=== PATIENT | male | born 1965 | race American Indian/Alaskan Native ===

== ENCOUNTER 2016-11-16 20:04 | Emergency (ER) | payer MEDICAID ==
[2016-11-16 20:19] VITALS: BP 100/67; PULSE 97; RESP 20; TEMP 98.1; O2SAT 96
--- NOTE | 2016-11-16 21:04 | C.PDOC ---
History Of Present Illness 51 y/o male pmhx schizophrenia and bipolar disorder recently moved from [place] presents to the ED requesting medication refill. Pt hasn't had medications in 3 days due to recent move. Pt also requesting evaluation for psych admission. Denies SI, HI, hallucinations or any other complaints. Time Seen by Provider: 11/16/16 20:37 Chief Complaint (Nursing): Med Refill History Per: Patient History/Exam Limitations: no limitations Onset/Duration Of Symptoms: Days Current Symptoms Are (Timing): Still Present Severity: Mild Recent travel outside of the [place]: No Past Medical History Reviewed: Historical Data, Nursing Documentation, Vital Signs Vital Signs: Last Vital Signs Temp 98.1 F 11/16/16 20:18 Pulse 97 H 11/16/16 20:18 Resp 20 11/16/16 20:18 BP 100/67 11/16/16 20:18 Pulse Ox 96 11/16/16 23:04 - Medical History PMH: Bipolar Disorder, HTN, Hyperlipidemia, Schizophrenia Family History: States: Unknown Family Hx - Social History Hx Alcohol Use: No Hx Substance Use: No Review Of Systems Except As Marked, All Systems Reviewed And Found Negative. Psych: Negative for: Suicidal ideation Physical Exam - Physical Exam Appears: Non-toxic, No Acute Distress, Other (discheveled, anxious) Skin: Warm, Dry, No Rash Head: Atraumatic, Normacephalic Eye(s): bilateral: PERRL, EOMI Neck: Normal, Normal ROM, Supple Chest: Symmetrical Cardiovascular: Rhythm Regular, No Murmur Respiratory: Normal Breath Sounds, No Rales, No Rhonchi, No Wheezing Gastrointestinal/Abdominal: Normal Exam, Soft, No Tenderness Extremity: Normal ROM Extremity: Bilateral: Atraumatic Neurological/Psych: Oriented x3, Normal Speech ED Course And Treatment - Laboratory Results Result Diagrams: 11/16/16 21:15 11/16/16 21:15 O2 Sat by Pulse Oximetry: 96 (room air) Pulse Ox Interpretation: Normal Progress Note: Plan: labs, UA, Crisis evaluation. Pt is medically stable, was evaluated by crisis counselor Prudence and case was d/w psychiatrist- as per crisis pt was seen at [facility] earlier today and according to a relative pt just [place] from [place] and has not been compliant to meds - pt wants to be started back on his psych meds and has no S/H ideations, or hallucinations or depression sx. Pt was referred to [facility] on monday for outpatient management and was given a list of local shelters. Pt is stable in NAD, VSS, labs reviewed and WNL. Pt understands plan for follow up and return precautions Disposition Counseled Patient/Family Regarding: Diagnosis, Need For Followup, Rx Given - Disposition Referrals: PMD, Private doctor [Other] Disposition: HOME/ ROUTINE Disposition Time: 21:02 Condition: STABLE Additional Instructions: Please follow up with [facility] as scheduled on monday Return to ER if worse Forms: General Discharge Instructions - Clinical Impression Clinical Impression: Encounter for medication refill, Evaluation by psychiatric service required - PA / PROCESS IMPROVEMENT CONSULTANT / Resident Statement MD/DO has reviewed & agrees with the documentation as recorded. - Scribe Statement The provider has reviewed the documentation as recorded by the Scribfritz Hernandez All medical record entries made by the Massimoibfritz were at my direction and personally dictated by me. I have reviewed the chart and agree that the record accurately reflects my personal performance of the history, physical exam, medical decision making, and the department course for this patient. I have also personally directed, reviewed, and agree with the discharge instructions and disposition.
[2016-11-16 21:24] LABS: BASO % 0.4 % (0.0-2.0); EOS % 0.4 % (0.0-4.0); LYMPH # 0.9 K/uL (1.0-4.3); LYMPH % 10.9 % (20.0-40.0); MEAN CELL VOLUME 83.8 fL (80.0-94.0); MEAN CORPUSCULAR HEMOGLOBIN 27.5 pg (27.0-31.0); MEAN CORPUSCULAR HGB CONC 32.8 g/dL (33.0-37.0); MEAN PLATELET VOLUME 9.5 fL (7.2-11.7); MONO # 0.7 K/uL (0.0-0.8); MONO % 8.6 % (0.0-10.0); NEUT # 6.8 K/uL (1.8-7.0); NEUT % 79.7 % (50.0-75.0); RBC 5.11 Mil/uL (4.40-5.90); RED CELL DISTRIBUTION WIDTH 12.8 % (11.5-14.5); WHITE BLOOD COUNT 8.6 K/uL (4.8-10.8)
[2016-11-16 21:26] LABS: ALBUMIN 4.1 g/dL (3.5-5.0)
[2016-11-16 21:29] LABS: GFR AFRICAN-AMERICAN > 60; GFR NON-AFRICAN AMERICAN > 60
[2016-11-16 21:30] LABS: ALB/GLOB RATIO 1.2 (1.0-2.1); ALT/SGPT 27 U/L (21-72); AST/SGOT 28 U/L (17-59); BLOOD UREA NITROGEN 20 mg/dL (9-20); CALCIUM 9.5 mg/dl (8.6-10.4)
[2016-11-16 21:32] LABS: BARBITURATES, UR NEGATIVE (NEGATIVE); SQUAMOUS EPITHIAL < 1 /hpf (0-5); URINE BILIRUBIN NEGATIVE (NEGATIVE); URINE BLOOD NEGATIVE (NEGATIVE); URINE CLARITY Clear (Clear); URINE COLOR Yellow (YELLOW); URINE GLUCOSE (UA) NORMAL (Normal); URINE LEUKOCYTE ESTERASE NEG Leu/uL (Negative); URINE NITRATE NEGATIVE (NEGATIVE); URINE PROTEIN NEGATIVE (NEGATIVE)
[2016-11-16 21:33] LABS: BENZODIAZEPINES, UR NEGATIVE (NEGATIVE)
[2016-11-16 21:36] LABS: OPIATES, UR NEGATIVE (NEGATIVE)
[2016-11-16 21:37] LABS: PHENCYCLIDINE, UR NEGATIVE (NEGATIVE)
== END 2016-11-16 23:07 | disposition home or self-care (01) ==
LOC: C.ER 20:04
DX: F31.9 Bipolar disorder, unspecified (principal); F20.9 Schizophrenia, unspecified; Z76.0 Encounter for issue of repeat prescription

== ENCOUNTER 2016-12-08 00:02 | Emergency (ER) | payer MEDICARE, MEDICAID ==
[2016-12-08 00:17] VITALS: TEMP 98.2
--- NOTE | 2016-12-08 00:42 | C.PDOC ---
History Of Present Illness A 51 M c/o left shoulder pain that began today. Pt notes carrying a heavy load today and is now complaining of pain. Pt was discharged from today. Denies weakness, numbness, trauma to the area, or any other complaints. Time Seen by Provider: 12/08/16 00:40 Chief Complaint (Nursing): Upper Extremity Problem/Injury History Per: Patient History/Exam Limitations: no limitations Onset/Duration Of Symptoms: Hrs Current Symptoms Are (Timing): Still Present Quality: "Pain" Severity: Mild Recent travel outside of the [place]: No Additional History Per: Patient Past Medical History Reviewed: Historical Data, Nursing Documentation, Vital Signs Vital Signs: Last Vital Signs Temp 98.2 F 12/08/16 00:10 Pulse 87 12/08/16 00:10 Resp 16 12/08/16 00:10 BP 105/68 12/08/16 00:10 Pulse Ox 98 12/08/16 00:43 - Medical History PMH: Asthma, Bipolar Disorder, HTN, Hypercholesterolemia, Hyperlipidemia, Schizophrenia Denies: Diabetes, Hepatitis, HIV, Chronic Kidney Disease, Seizures, Sexually Transmitted Disease Family History: States: Unknown Family Hx - Social History Hx Alcohol Use: No Hx Substance Use: No - Immunization History Hx Influenza Vaccination: No Hx Pneumococcal Vaccination: No Review Of Systems Except As Marked, All Systems Reviewed And Found Negative. Constitutional: Negative for: Other (Trauma) Musculoskeletal: Positive for: Shoulder Pain (Left shoulder) Neurological: Negative for: Weakness, Numbness Physical Exam - Physical Exam Appears: Non-toxic, No Acute Distress Skin: Warm, Dry Head: Atraumatic, Normacephalic Extremity: Normal ROM, Tenderness (Mild tenderness to the left shoulder area), Capillary Refill (<2secs), No Deformity Extremity: Bilateral: Normal Color And Temperature Pulses: Left Radial: Normal, Right Radial: Normal Neurological/Psych: Oriented x3, Normal Speech, Normal Cognition, Normal Motor, Normal Sensation, Other (No focal deficit) Gait: Steady ED Course And Treatment O2 Sat by Pulse Oximetry: 98 (RA) Pulse Ox Interpretation: Normal Medical Decision Making Medical Decision Making: Impression: A 51 M c/o left shoulder pain that began today. Plans: -Tylenol -Flexeril -Reassess Disposition Counseled Patient/Family Regarding: Diagnosis - Disposition Referrals: [facility] [Outside] Disposition: HOME/ ROUTINE Disposition Time: 00:40 Condition: STABLE Prescriptions: Acetaminophen [Tylenol 325mg tab] 650 mg PO Q4 #20 tab Cyclobenzaprine [Cyclobenzaprine HCl] 10 mg PO TID #10 tab Instructions: Muscle Strain (ED), Musculoskeletal Pain (ED) Forms: [employer] (Greenlandic) - POA Present On Arrival: None - Clinical Impression Clinical Impression: Muscle strain, Musculoskeletal pain - Scribe Statement The provider has reviewed the documentation as recorded by the Massimoibfritz barrios All medical record entries made by the Massimoibfritz were at my direction and personally dictated by me. I have reviewed the chart and agree that the record accurately reflects my personal performance of the history, physical exam, medical decision making, and the department course for this patient. I have also personally directed, reviewed, and agree with the discharge instructions and disposition.
[2016-12-08 01:27] VITALS: BP 116/68; PULSE 88; RESP 20; O2SAT 97
== END 2016-12-08 01:25 | disposition home or self-care (01) ==
LOC: C.ER 00:02
DX: S46.912A Strain of unspecified muscle, fascia and tendon at shoulder and upper arm level, left arm, initial encounter (principal); X50.0XXA Overexertion from strenuous movement or load, initial encounter; M79.1 Myalgia

== ENCOUNTER 2017-05-27 12:25 | Emergency (ER) | payer MEDICARE, OTHER ==
[2017-05-27 12:41] VITALS: RESP 18
[2017-05-27 13:54] LABS: BASO # 0.1 K/uL (0.0-0.2); BASO % 0.9 % (0.0-2.0); EOS % 0.4 % (0.0-4.0); HEMOGLOBIN 14.1 g/dL (12.0-18.0); LYMPH % 11.5 % (20.0-40.0); MEAN CELL VOLUME 84.2 fL (80.0-94.0); MEAN CORPUSCULAR HEMOGLOBIN 28.6 pg (27.0-31.0); MEAN PLATELET VOLUME 9.6 fL (7.2-11.7); MONO # 0.7 K/uL (0.0-0.8); NEUT # 6.8 K/uL (1.8-7.0); NEUT % 79.2 % (50.0-75.0); RBC 4.93 Mil/uL (4.40-5.90); RED CELL DISTRIBUTION WIDTH 12.6 % (11.5-14.5); WHITE BLOOD COUNT 8.6 K/uL (4.8-10.8)
[2017-05-27 14:07] LABS: ALB/GLOB RATIO 1.1 (1.0-2.1); ALT/SGPT 34 U/L (21-72); AST/SGOT 39 U/L (17-59); BLOOD UREA NITROGEN 10 mg/dL (9-20); CALCIUM 8.8 mg/dl (8.6-10.4); GFR AFRICAN-AMERICAN > 60; GFR NON-AFRICAN AMERICAN > 60; PROTHROMBIN TIME 11.7 SECONDS (9.7-12.2)
--- NOTE | 2017-05-27 14:14 | RAD ---
HISTORY: SOB COMPARISON: None available. TECHNIQUE: Chest, one view. FINDINGS: LUNGS: No focal consolidation. Please note that chest x-ray has limited sensitivity for the detection of pulmonary masses. PLEURA: No significant pleural effusion identified. No definite pneumothorax . CARDIOVASCULAR: The cardiomediastinal silhouette appears within normal limits of size. OSSEOUS STRUCTURES: No acute osseous abnormality identified. VISUALIZED UPPER ABDOMEN: Unremarkable. OTHER FINDINGS: None. IMPRESSION: No focal consolidation, significant pleural effusion, or definite pneumothorax identified.
[2017-05-27 14:18] LABS: CK-MB 2.27 ng/mL (0.0-3.38)
--- NOTE | 2017-05-27 14:23 | C.PDOC ---
History Of Present Illness Patient presents to ED c/o intermittent chest pain for approx one year. Pain is left sided, reproducible, nonradiating, and not associated with SOB, nausea, diaphoresis. He denies cough, fever, abdominal pain. PMhx of HTN, hyperlipidemia, asthma, bipolar disorder/anxiety.. Time Seen by Provider: 05/27/17 13:16 Chief Complaint (Nursing): Chest Pain History Per: Patient History/Exam Limitations: no limitations Onset/Duration Of Symptoms: Persistent Current Symptoms Are (Timing): Still Present Severity: Mild Quality: "Pain" Past Medical History Reviewed: Historical Data, Nursing Documentation, Vital Signs Vital Signs: Last Vital Signs Temp 98 F 05/27/17 12:39 Pulse 90 05/27/17 12:39 Resp 18 05/27/17 12:39 BP 130/84 05/27/17 12:39 Pulse Ox 99 05/27/17 14:26 - Medical History PMH: Anxiety, Asthma, Bipolar Disorder, HTN, Hypercholesterolemia, Hyperlipidemia, Schizophrenia - [facility] INDIVIDUAL PSYCHOTHERAPY, BEHAVIORAL (12/03/16) Family History: States: No Known Family Hx - Social History Hx Alcohol Use: Yes Hx Substance Use: No - Immunization History Hx Influenza Vaccination: No Hx Pneumococcal Vaccination: No Review Of Systems Except As Marked, All Systems Reviewed And Found Negative. Constitutional: Negative for: Fever, Chills Cardiovascular: Positive for: Chest Pain. Negative for: Palpitations Respiratory: Negative for: Shortness of Breath Gastrointestinal: Negative for: Nausea, Vomiting, Abdominal Pain, Diarrhea Skin: Negative for: Rash Physical Exam - Physical Exam Appears: Well, Non-toxic, No Acute Distress, Unkempt Skin: Normal Color, Warm, Dry, No Rash Oral Mucosa: Moist Chest: Tenderness (left sided ) Cardiovascular: Rhythm Regular Respiratory: Normal Breath Sounds, No Rales, No Rhonchi, No Wheezing Gastrointestinal/Abdominal: Normal Exam, Bowel Sounds, Soft, No Tenderness Extremity: Normal ROM, No Pedal Edema, No Calf Tenderness Pulses: Left Dorsalis Pedis: Normal, Right Dorsalis Pedis: Normal Neurological/Psych: Oriented x3 ED Course And Treatment - Laboratory Results Result Diagrams: 05/27/17 13:47 05/27/17 13:47 ECG: Interpreted By Me, Viewed By Me (NSR 75 bpm, normal axis, no acute ST/T wave changes) ECG Interpretation: Normal O2 Sat by Pulse Oximetry: 99 (RA) Pulse Ox Interpretation: Normal - Radiology CXR: Interpreted by Me, Viewed By Me CXR Interpretation: Yes: No Acute Disease. No: Infiltrates Disposition Counseled Patient/Family Regarding: Studies Performed, Diagnosis, Need For Followup, Rx Given - Disposition Referrals: [facility] [Outside] Yefri Santana MD [Staff Provider] - Disposition: HOME/ ROUTINE Disposition Time: 14:45 Condition: STABLE Additional Instructions: FOLLOW UP IN MEDICAL CLINIC IN 1-2 DAYS, AND WITH CARDIOLOGY WITHIN 1 WEEK RETURN TO ER IMMEDIATELY IF SYMPTOMS WORSEN Instructions: Chest Pain (ED) Forms: [facility] (Haitian) Print Language: ROMANSH - POA Present On Arrival: None - Clinical Impression Clinical Impression: Chronic chest pain
[2017-05-27 15:20] VITALS: BP 128/78; PULSE 84; TEMP 98.1; O2SAT 100
--- NOTE | 2017-05-29 14:56 | CARD ---
APPROVED REPORT EKG Measurement Heart [id number] <Conclusion> Normal sinus rhythm Normal ECG
== END 2017-05-27 15:40 | disposition home or self-care (01) ==
LOC: C.ER 12:25
DX: G89.29 Other chronic pain (principal); R07.9 Chest pain, unspecified

== ENCOUNTER 2017-07-05 18:23 | Emergency (ER) | payer MEDICARE, OTHER ==
[2017-07-05 19:43] VITALS: O2SAT 99
--- NOTE | 2017-07-05 20:04 | C.PDOC ---
History Of Present Illness 51 year old male presents to the ER, reports he recently got in an argument with sister. States he has no place to go or stay the night. Patient reports history of bipolar disorder, and has not taken his psychiatric medications for some time now. No fever, chills, nausea, or vomiting. Denies any suicidal or homicidal ideation. PMD: Dr. Dennis Balbuena Time Seen by Provider: 07/05/17 20:03 Chief Complaint (Nursing): Psychiatric Evaluation History Per: Patient History/Exam Limitations: no limitations Onset/Duration Of Symptoms: Hrs Current Symptoms Are (Timing): Still Present Suicide/Self Injury Attempted (Context): None Modifying Factor(s): None Involuntary Hold By: None Recent travel outside of the [place]: No Past Medical History Reviewed: Historical Data, Nursing Documentation, Vital Signs Vital Signs: Last Vital Signs Temp 98.6 F 07/05/17 19:38 Pulse 93 H 07/05/17 19:38 Resp 20 07/05/17 19:38 BP 91/58 L 07/05/17 19:38 Pulse Ox 99 07/05/17 20:43 - Medical History PMH: Anxiety, Asthma, Bipolar Disorder, HTN, Hypercholesterolemia, Hyperlipidemia, Schizophrenia Denies: Diabetes, Hepatitis, HIV, Chronic Kidney Disease, Seizures, Sexually Transmitted Disease Other Surgeries: Right knee surgery - [facility] INDIVIDUAL PSYCHOTHERAPY, BEHAVIORAL (12/03/16) Family History: States: Unknown Family Hx - Social History Hx Alcohol Use: No Hx Substance Use: No - Immunization History Hx Tetanus Toxoid Vaccination: Yes Hx Influenza Vaccination: No Hx Pneumococcal Vaccination: No Review Of Systems Constitutional: Negative for: Fever, Chills Gastrointestinal: Negative for: Nausea, Vomiting Psych: Negative for: Suicidal ideation (or homicidal) Physical Exam - Physical Exam Appears: Non-toxic, No Acute Distress Skin: Warm, Dry Head: Normacephalic Eye(s): bilateral: Normal Inspection Oral Mucosa: Moist Neck: Trachea Midline, Supple Chest: Symmetrical Cardiovascular: Rhythm Regular Respiratory: No Rales, No Rhonchi, No Wheezing Gastrointestinal/Abdominal: Soft, No Tenderness, No Distention Back: Normal Inspection Extremity: Normal ROM Extremity: Bilateral: Atraumatic Pulses: Left Dorsalis Pedis: Normal, Right Dorsalis Pedis: Normal Neurological/Psych: Oriented x3, Other (Pleasant and cooperative) Gait: Steady ED Course And Treatment - Laboratory Results Result Diagrams: 07/05/17 20:19 07/05/17 20:19 O2 Sat by Pulse Oximetry: 99 (RA) Pulse Ox Interpretation: Normal Progress Note: Ordered labs, UDS, and UA. Crisis will evaluate patient. Reevaluation Time: 05:11 Reassessment Condition: Improved Disposition Counseled Patient/Family Regarding: Studies Performed, Diagnosis, Need For Followup - Disposition Referrals: [facility] [Outside] Disposition: HOME/ ROUTINE Disposition Time: 20:04 Condition: FAIR Instructions: Anxiety, Adult (DC) Forms: [employer] (Sinhala) - Clinical Impression Clinical Impression: Anxiety - Scribe Statement The provider has reviewed the documentation as recorded by the Scribe (Rayna Emanuel) Provider Attestation: All medical record entries made by the Scribe were at my direction and personally dictated by me. I have reviewed the chart and agree that the record accurately reflects my personal performance of the history, physical exam, medical decision making, and the department course for this patient. I have also personally directed, reviewed, and agree with the discharge instructions and disposition.
[2017-07-05 20:24] LABS: BASO % 0.5 % (0.0-2.0); EOS % 0.6 % (0.0-4.0); HEMOGLOBIN 13.2 g/dL (12.0-18.0); LYMPH # 1.5 K/uL (1.0-4.3); LYMPH % 20.1 % (20.0-40.0); MEAN CELL VOLUME 84.6 fL (80.0-94.0); MEAN CORPUSCULAR HEMOGLOBIN 28.2 pg (27.0-31.0); MEAN CORPUSCULAR HGB CONC 33.4 g/dL (33.0-37.0); MONO # 0.8 K/uL (0.0-0.8); MONO % 11.1 % (0.0-10.0); NEUT % 67.7 % (50.0-75.0); NRBC % 0.1 % (0.0-2.0); RBC 4.67 Mil/uL (4.40-5.90); RED CELL DISTRIBUTION WIDTH 13.4 % (11.5-14.5); WHITE BLOOD COUNT 7.4 K/uL (4.8-10.8)
[2017-07-05 20:27] LABS: SQUAMOUS EPITHIAL < 1 /hpf (0-5); URINE BACTERIA RARE (<OCC); URINE BILIRUBIN NEGATIVE (NEGATIVE); URINE BLOOD NEGATIVE (NEGATIVE); URINE CLARITY Hazy (Clear); URINE COLOR Yellow (YELLOW); URINE GLUCOSE (UA) NORMAL (Normal); URINE LEUKOCYTE ESTERASE NEG Leu/uL (Negative); URINE NITRATE NEGATIVE (NEGATIVE); URINE PROTEIN 1+ mg/dL (NEGATIVE); URINE UROBILINOGEN NORMAL mg/dL (0.2-1.0)
[2017-07-05 20:39] LABS: ALB/GLOB RATIO 1.2 (1.0-2.1); ALT/SGPT 28 U/L (21-72); AST/SGOT 82 U/L (17-59); BLOOD UREA NITROGEN 16 mg/dL (9-20); CALCIUM 9.2 mg/dl (8.6-10.4); GFR AFRICAN-AMERICAN > 60; GFR NON-AFRICAN AMERICAN > 60
[2017-07-05 20:43] LABS: BARBITURATES, UR NEGATIVE (NEGATIVE); BENZODIAZEPINES, UR NEGATIVE (NEGATIVE); OPIATES, UR NEGATIVE (NEGATIVE); PHENCYCLIDINE, UR NEGATIVE (NEGATIVE)
[2017-07-06 05:27] VITALS: BP 122/81; PULSE 71; RESP 18; TEMP 98.1
== END 2017-07-06 05:56 | disposition home or self-care (01) ==
LOC: C.ER 18:23
DX: F41.9 Anxiety disorder, unspecified (principal)
CPT/HCPCS: 80053; 81001; 85025; 99284; G0480

== ENCOUNTER 2017-07-29 19:09 | Emergency (ER) | payer MEDICARE, OTHER ==
[2017-07-29] MEDS ORDERED: Sodium Chloride 0.9% 1,000 ML IV ONE (19:43)
[2017-07-29] MEDS ORDERED: Iohexol 240 (50 ml) PO ONE (19:44)
--- NOTE | 2017-07-29 19:45 | C.PDOC ---
History Of Present Illness 51 y/o male, whose PMH includes HTN, HLD, and hypercholesterolemia, who presents to the ED complaining of left sided chest pain and abdominal pain since 2 days ago. He reports the pain became worse today. patient denies fever, shortness of breath, vomiting, diarrhea, or other complaints. Chief Complaint (Nursing): Abdominal Pain History Per: Patient History/Exam Limitations: no limitations Onset/Duration Of Symptoms: Days Current Symptoms Are (Timing): Worse Location Of Pain/Discomfort: RLQ Radiation Of Pain To:: Chest Associated Symptoms: denies: Fever, Vomiting, Diarrhea Exacerbating Factors: None Alleviating Factors: None Recent travel outside of the [place]: No Past Medical History Reviewed: Historical Data, Nursing Documentation, Vital Signs Vital Signs: Last Vital Signs Temp 98.1 F 07/29/17 19:22 Pulse 67 07/29/17 19:22 Resp 14 07/29/17 19:22 BP 116/66 07/29/17 19:22 Pulse Ox 96 07/29/17 21:19 - Medical History PMH: Anxiety, Asthma, Bipolar Disorder, HTN, Hypercholesterolemia, Hyperlipidemia, Schizophrenia Denies: Diabetes, Hepatitis, HIV, Chronic Kidney Disease, Seizures, Sexually Transmitted Disease - [facility] Procedures INDIVIDUAL PSYCHOTHERAPY, BEHAVIORAL (12/03/16) Family History: States: Unknown Family Hx - Social History Hx Alcohol Use: No Hx Substance Use: No - Immunization History Hx Tetanus Toxoid Vaccination: Yes Hx Influenza Vaccination: No Hx Pneumococcal Vaccination: No Review Of Systems Except As Marked, All Systems Reviewed And Found Negative. Constitutional: Negative for: Fever Cardiovascular: Positive for: Chest Pain Respiratory: Negative for: Shortness of Breath Gastrointestinal: Positive for: Abdominal Pain. Negative for: Diarrhea Physical Exam - Physical Exam Appears: Well, Non-toxic, No Acute Distress Skin: Normal Color, Warm, Dry Head: Atraumatic, Normacephalic Eye(s): bilateral: Normal Inspection, PERRL, EOMI Cardiovascular: Rhythm Regular Respiratory: Normal Breath Sounds, No Rales, No Rhonchi, No Wheezing Gastrointestinal/Abdominal: Bowel Sounds (active), Tenderness (RLQ tenderness ) Neurological/Psych: Oriented x3, Normal Speech, Normal Motor ED Course And Treatment - Laboratory Results Result Diagrams: 07/29/17 19:53 07/29/17 19:53 ECG: Interpreted By Me, Viewed By Me ECG Rhythm: Sinus Rhythm ECG Interpretation: Normal, No Acute Changes Interpretation Of ECG: NSR, normal tracings Rate From EC O2 Sat by Pulse Oximetry: 96 (room air) Pulse Ox Interpretation: Normal - Radiology CXR: Interpreted by Me CXR Interpretation: Yes: No Acute Disease, Other (nornmal chest films). No: Infiltrates Medical Decision Making Medical Decision Making: Plans: -- EKG -- CT abdomen and pelvis -- Labs -- Urinalysis Disposition Counseled Patient/Family Regarding: Diagnosis - Disposition Referrals: [facility] [Outside] Disposition: HOME/ ROUTINE Disposition Time: 23:29 Condition: STABLE Prescriptions: Dicyclomine [Bentyl] 10 mg PO QID #10 cap Instructions: Costochondritis, Acute Abdomen (Belly Pain), Adult (DC) Forms: [employer] (Upper Sorbian) - POA Present On Arrival: None - Clinical Impression Clinical Impression: Abdominal pain, Chest wall pain - Scribe Statement The provider has reviewed the documentation as recorded by the Scribe Scribe Attestation: Kaelyn Michel MD Scribe Attestation: All medical record entries made by the Scribe were at my direction and personally dictated by me. I have reviewed the chart and agree that the record accurately reflects my personal performance of the history, physical exam, medical decision making, and the department course for this patient. I have also personally directed, reviewed, and agree with the discharge instructions and disposition.
[2017-07-29] MEDS ORDERED: Sodium Chloride 0.9% 1,000 ML ONE (19:55)
[2017-07-29] MEDS ORDERED: Iohexol 240 (50 ml) ONE (19:55)
[2017-07-29 19:56] LABS: BASO % 0.4 % (0.0-2.0); EOS # 0.1 K/uL (0.0-0.7); EOS % 1.7 % (0.0-4.0); HEMOGLOBIN 13.2 g/dL (12.0-18.0); LYMPH # 1.4 K/uL (1.0-4.3); LYMPH % 19.1 % (20.0-40.0); MEAN CELL VOLUME 84.5 fL (80.0-94.0); MEAN CORPUSCULAR HEMOGLOBIN 27.6 pg (27.0-31.0); MEAN CORPUSCULAR HGB CONC 32.7 g/dL (33.0-37.0); MONO # 0.8 K/uL (0.0-0.8); MONO % 10.9 % (0.0-10.0); NEUT # 4.9 K/uL (1.8-7.0); NEUT % 67.9 % (50.0-75.0); NRBC % 0.1 % (0.0-2.0); RBC 4.78 Mil/uL (4.40-5.90); RED CELL DISTRIBUTION WIDTH 13.2 % (11.5-14.5); WHITE BLOOD COUNT 7.2 K/uL (4.8-10.8)
[2017-07-29 20:18] LABS: ALB/GLOB RATIO 1.1 (1.0-2.1); ALBUMIN 3.9 g/dL (3.5-5.0); ALT/SGPT 45 U/L (21-72); AST/SGOT 53 U/L (17-59); BLOOD UREA NITROGEN 15 mg/dL (9-20); CALCIUM 8.6 mg/dl (8.6-10.4); GFR AFRICAN-AMERICAN > 60; GFR NON-AFRICAN AMERICAN > 60
--- NOTE | 2017-07-29 23:00 | CT ---
EXAM: CT Abdomen and Pelvis With Intravenous Contrast CLINICAL HISTORY: 51 years old, male; Pain; Abdominal pain; Additional info: Rlq pain/ tebderness TECHNIQUE: Axial computed tomography images of the abdomen and pelvis with intravenous contrast. All CT scans at this facility use one or more dose reduction techniques, viz.: automated exposure control; ma/kV adjustment per patient size (including targeted exams where dose is matched to indication; i.e. head); or iterative reconstruction technique. Coronal and sagittal reformatted images were created and reviewed. CONTRAST: 100 mL of [id number] administered intravenously. COMPARISON: No relevant prior studies available. FINDINGS: Lower thorax: No acute findings. ABDOMEN: Liver: Unremarkable. No mass. Gallbladder and bile ducts: Unremarkable. No calcified stones. No ductal dilation. Pancreas: Unremarkable. No mass. No ductal dilation. Spleen: Unremarkable. No splenomegaly. Adrenals: Unremarkable. No mass. Kidneys and ureters: Unremarkable. No solid mass. No hydronephrosis. Stomach and bowel: Unremarkable. No obstruction. No mucosal thickening. There is a moderate amount of retained stool throughout the colon. Appendix: No appendix is specifically identified. There is no evidence of fluid collections or inflammatory stranding in the right lower quadrant. PELVIS: Bladder: Unremarkable. No mass. Reproductive: Unremarkable as visualized. ABDOMEN and PELVIS: Intraperitoneal space: Unremarkable. No free air. No significant fluid collection. Bones/joints: No acute fracture. No dislocation. Soft tissues: Unremarkable. Vasculature: Unremarkable. No abdominal aortic aneurysm. Lymph nodes: Unremarkable. No enlarged lymph nodes. IMPRESSION: No evidence of an acute intra-abdominal or pelvic abnormality. No acute appendicitis.
[2017-07-30 03:20] LABS: SQUAMOUS EPITHIAL < 1 /hpf (0-5); URINE BILIRUBIN NEGATIVE (NEGATIVE); URINE BLOOD NEGATIVE (NEGATIVE); URINE CLARITY Clear (Clear); URINE COLOR Yellow (YELLOW); URINE GLUCOSE (UA) NORMAL (Normal); URINE LEUKOCYTE ESTERASE NEG Leu/uL (Negative); URINE PROTEIN NEGATIVE (NEGATIVE); URINE UROBILINOGEN NORMAL mg/dL (0.2-1.0)
[2017-07-30 06:05] VITALS: BP 121/58; PULSE 76; RESP 18; TEMP 97.8; O2SAT 97
--- NOTE | 2017-07-30 09:40 | RAD ---
HISTORY: chest pain COMPARISON: No prior. TECHNIQUE: Chest PA and lateral FINDINGS: LUNGS: No active pulmonary disease. PLEURA: No significant pleural effusion identified. No pneumothorax apparent. CARDIOVASCULAR: Normal. OSSEOUS STRUCTURES: No significant abnormalities. VISUALIZED UPPER ABDOMEN: Normal. OTHER FINDINGS: None. IMPRESSION: No active disease.
--- NOTE | 2017-08-02 19:00 | CARD ---
APPROVED REPORT EKG Measurement Heart [id number] ME [id number] <Conclusion> Normal sinus rhythm Normal ECG
== END 2017-07-30 06:05 | disposition home or self-care (01) ==
LOC: C.ER 19:09
DX: R07.89 Other chest pain (principal); R10.31 Right lower quadrant pain
CPT/HCPCS: 71046; 74177; 80053; 81001; 82948; 83690; 84484; 85025; 99285; J7040; Q9966

== ENCOUNTER 2017-09-05 17:40 | Emergency (ER) | payer MEDICARE, OTHER ==
[2017-09-05 17:46] VITALS: BMI 22.1
--- NOTE | 2017-09-05 17:50 | C.PDOC ---
History Of Present Illness 51 y/o male brought to ER by ambulance from [facility] for evaluation of right- sided chest pain. Patient states that the pain is positionally and digitally reproducible.He denies having fever, chills, and SOB.Of note, patient has 4 large suitcases with him. Time Seen by Provider: 09/05/17 17:45 Chief Complaint (Nursing): Chest Pain History Per: Patient History/Exam Limitations: no limitations Onset/Duration Of Symptoms: Days Current Symptoms Are (Timing): Still Present Severity: Moderate Past Medical History Reviewed: Historical Data, Nursing Documentation, Vital Signs Vital Signs: Last Vital Signs Temp 98.5 F 09/05/17 17:45 Pulse 88 09/05/17 17:45 Resp 16 09/05/17 17:45 BP 134/86 09/05/17 17:45 Pulse Ox 99 09/05/17 18:29 - Medical History PMH: Anxiety, Asthma, Bipolar Disorder, HTN, Hypercholesterolemia, Hyperlipidemia, Schizophrenia Denies: Diabetes, Hepatitis, HIV, Chronic Kidney Disease, Seizures, Sexually Transmitted Disease Other Surgeries: Hx of surgeries - [facility] INDIVIDUAL PSYCHOTHERAPY, BEHAVIORAL (12/03/16) Family History: States: No Known Family Hx - Social History Hx Alcohol Use: No Hx Substance Use: No - Immunization History Hx Tetanus Toxoid Vaccination: Yes Hx Influenza Vaccination: No Hx Pneumococcal Vaccination: No Review Of Systems Except As Marked, All Systems Reviewed And Found Negative. Constitutional: Negative for: Fever, Chills Cardiovascular: Positive for: Chest Pain Respiratory: Negative for: Cough, Shortness of Breath Physical Exam - Physical Exam Appears: Non-toxic, No Acute Distress, Chronically Ill (chronically and mentally ill), Other (thin black man) Skin: Normal Color, Warm Head: Atraumatic, Normacephalic Eye(s): bilateral: Normal Inspection Nose: Normal Oral Mucosa: Moist Neck: Supple Chest: Symmetrical, Tenderness (digitally and positionally reproducible tenderness to right parasternal area, intercostal spaces) Cardiovascular: Rhythm Regular Respiratory: Normal Breath Sounds, No Rales, No Rhonchi, No Wheezing Neurological/Psych: Oriented x3, Normal Speech ED Course And Treatment ECG: Interpreted By Me ECG Rhythm: Sinus Rhythm ECG Interpretation: Normal Rate From EC O2 Sat by Pulse Oximetry: 99 (RA) Pulse Ox Interpretation: Normal Medical Decision Making Medical Decision Making: digitally and positionally reproducable parasternal discomfort no trauma normal EKG costochondritis. Disposition Doctor Will See Patient In The: Office Counseled Patient/Family Regarding: Studies Performed, Diagnosis - Disposition Referrals: [facility] [place] [Outside] [facility] [Outside] [facility] [Outside] Disposition: HOME/ ROUTINE Disposition Time: 17:51 Condition: GOOD Additional Instructions: ice packs to the R chest 1/2 hour per hour, nothing hot Motrin/Advil 400-600 mg every 6 hours as needed no heavy lifting x 1 week Follow-up in our outpatient Clinic as needed. Instructions: Costochondritis Forms: [email or web address] (Belarusian) - Clinical Impression Clinical Impression: Chest wall discomfort
[2017-09-05 17:51] VITALS: BP 134/86; PULSE 88; RESP 16; TEMP 98.5; O2SAT 99
--- NOTE | 2017-09-06 23:58 | CARD ---
APPROVED REPORT EKG Measurement Heart [id number] IA 122P79 [id number] <Conclusion> Normal sinus rhythm Normal ECG
== END 2017-09-05 17:57 | disposition home or self-care (01) ==
LOC: C.ER 17:40
DX: R07.89 Other chest pain (principal); E78.00 Pure hypercholesterolemia, unspecified; I10 Essential (primary) hypertension; F20.9 Schizophrenia, unspecified

== ENCOUNTER 2017-11-28 05:31 | Emergency (ER) | payer MEDICARE, OTHER ==
[2017-11-28 05:31] VITALS: BMI 22.1
[2017-11-28] MEDS ORDERED: Bacitracin 500 Units/gm Oint Foilpak UD ONE (06:14)
--- NOTE | 2017-11-28 06:19 | C.PDOC ---
History Of Present Illness 52 y/o male presents to ED for complaints of laceration to right third knuckle after punching a wall. Denies pain, weakness, numbness, or any other physical complaints. Patient is unsure about tetanus but refuses to take shot. Time Seen by Provider: 11/28/17 05:47 Chief Complaint (Nursing): Upper Extremity Problem/Injury History Per: Patient History/Exam Limitations: no limitations Onset/Duration Of Symptoms: Hrs Current Symptoms Are (Timing): Still Present Exacerbating Factor(s): Nothing Recent travel outside of the [place]: No Past Medical History Reviewed: Historical Data, Nursing Documentation, Vital Signs Vital Signs: Last Vital Signs Temp 98 F 11/28/17 05:39 Pulse 80 11/28/17 05:39 Resp 14 11/28/17 05:39 BP 108/71 11/28/17 05:39 Pulse Ox 98 11/28/17 06:34 - Medical History PMH: Anxiety, Asthma, Bipolar Disorder, HTN, Hypercholesterolemia, Hyperlipidemia, Schizophrenia - [facility] Procedures INDIVIDUAL PSYCHOTHERAPY, BEHAVIORAL (12/03/16) Family History: States: Unknown Family Hx - Social History Hx Alcohol Use: No Hx Substance Use: No - Immunization History Hx Tetanus Toxoid Vaccination: Yes Hx Influenza Vaccination: No Hx Pneumococcal Vaccination: No Review Of Systems Constitutional: Negative for: Fever, Chills Skin: Positive for: Other (Lacerathion to right 3rd knuckle). Negative for: Rash Neurological: Negative for: Weakness, Numbness Physical Exam - Physical Exam Appears: Well, Non-toxic, No Acute Distress Skin: Warm, Dry, No Ecchymosis, Other (Small abrasion to right 3rd mcp with minimal swelling ) Eye(s): bilateral: Normal Inspection Oral Mucosa: Moist Extremity: Normal ROM, No Tenderness, Capillary Refill (Less than 2 econds ), No Deformity, No Swelling, Other (small abrasion right 3rd MCP) Extremity: Bilateral: Normal Color And Temperature Pulses: Right Radial: Normal Neurological/Psych: Oriented x3, Normal Motor, Normal Sensation Gait: Steady ED Course And Treatment O2 Sat by Pulse Oximetry: 98 (RA) Pulse Ox Interpretation: Normal - Other Rad Hand X-Ray X-Ray: Interpreted by Me, Viewed By Me Interpretation: No acute findings Progress Note: - wound cleansed, dressing applied. - patient refuses pain medication and tetanus. Ordered X-Ray. Upon re-evaluation, patient states she is feeling much better and is stable for discharge. Counseling has been provided and follow up instructions has been provided and patient is in agreement. Return if symptoms persist or acutely worsen. Disposition Counseled Patient/Family Regarding: Diagnosis, Need For Followup - Disposition Referrals: [facility] [Outside] Disposition: HOME/ ROUTINE Disposition Time: 06:26 Condition: STABLE Additional Instructions: Keep wound clean and dry Wash with warm water and mild soap Apply neosporin ointment Return to ER if worse Prescriptions: Bacitracin OINT 1 applic TP BID #1 tube Instructions: Contusion (DC), Skin Abrasions (DC) Forms: [employer] (Ugandan) - Clinical Impression Clinical Impression: Abrasion hand, Contusion, hand - PA / MARKETING ACCOUNT MANAGER / Resident Statement MD/DO has reviewed & agrees with the documentation as recorded. - Scribe Statement The provider has reviewed the documentation as recorded by the Massimoibe Maurisio Jones All medical record entries made by the Scribe were at my direction and personally dictated by me. I have reviewed the chart and agree that the record accurately reflects my personal performance of the history, physical exam, medical decision making, and the department course for this patient. I have also personally directed, reviewed, and agree with the discharge instructions and disposition.
[2017-11-28 06:49] VITALS: BP 111/68; PULSE 70; RESP 16; TEMP 98.4; O2SAT 99
--- NOTE | 2017-11-28 07:55 | RAD ---
PROCEDURE: Right Hand Radiographs. HISTORY: trauma, pain and swelling COMPARISON: None. FINDINGS: BONES: . No fracture. JOINTS: Minimal osteoarthritic changes. No erosions seen SOFT TISSUES: Normal. OTHER FINDINGS: None. IMPRESSION: No fracture. Minimal osteoarthrosis
== END 2017-11-28 06:45 | disposition home or self-care (01) ==
LOC: C.ER 05:31
DX: S60.221A Contusion of right hand, initial encounter (principal); S60.511A Abrasion of right hand, initial encounter; W22.01XA Walked into wall, initial encounter; E78.00 Pure hypercholesterolemia, unspecified; I10 Essential (primary) hypertension; F20.9 Schizophrenia, unspecified; E78.5 Hyperlipidemia, unspecified